=== PATIENT | female | born 1990 | race Caucasian/White ===

== ENCOUNTER 2017-06-21 15:37 | Emergency (ER) | payer MEDICAID ==
[~2017-06-21] VITALS: Ht 177.8 cm; Wt 64.0 kg
[~2017-06-21 15:37] MED LIST: HYDR-569 PO; ONDA8TAB9 PO
[2017-06-21] MEDS ORDERED: ketorolac tromethamine 15mg/ml inj. IV ONE (16:10)
[2017-06-21] MEDS ORDERED: normal saline 1000ML IV soln IVB ONE ×2 (16:10→22:10)
[2017-06-21] MEDS ORDERED: ondansetron/PF 4mg/2ml inj IV ONE ×2 (16:10→18:35)
[2017-06-21 16:11] LABS: CLARITY,URINE Cloudy (Clear); COLOR,URINE Yellow (Yellow); GLUCOSE, URINE Negative (Neg); KETONES,URINE 80 mg/dl (Neg); LEUKOCYTE ESTERASE ,URINE Small (Neg); NITRITES, URINE Negative (Neg); OCCULT BLOOD,URINE Negative (Neg); PH,URINE 5.5 (4.8-8.0); PROTEIN,URINE 30 mg/dl (Neg); UA COLLECTION TYPE CLN CATCH MIDSTREAM; URINE HCG NEGATIVE (NEG)
[2017-06-21 16:18] LABS: BACTERIA,URINE 1+ /HPF (Neg); MUCUS STRANDS FEW /LPF (Neg); RBC,URINE NONE SEEN /HPF (0-2); SQUAMOUS EPITHELIAL CELL,UR MANY /LPF (FEW); TRANSITIONAL EPI CELLS,URINE FEW /HPF; WBC,URINE 20-30 /HPF (0-4)
[2017-06-21] MEDS ORDERED: ketorolac tromethamine 15mg/ml inj. IM ONE (17:20)
[2017-06-21] MEDS ORDERED: ondansetron 4mg rapidly disintigrating tab PO ONE (17:20)
[2017-06-21] MEDS ORDERED: LIDOcaine 1% 30ml preserv. free vial IJ ONE (17:25)
[2017-06-21] MEDS ORDERED: normal saline 1000ml 1,000 ML IV STA (17:53)
[2017-06-21 17:56] LABS: BASOPHILS % (AUTO) 0.5 % (0-1); EOSINOPHILS # (AUTO) 0.1 X10'3 (0-0.9); EOSINOPHILS % (AUTO) 1.1 % (0-6); HEMATOCRIT 36.9 % (35.0-45.0); HEMOGLOBIN 12.4 g/dl (12.0-16.0); LYMPHOCYTES # (AUTO) 0.7 X10'3 (1.1-4.8); LYMPHOCYTES % (AUTO) 7.8 % (21-51); MEAN CORPUSCULAR HEMOGLOBIN 30.8 PG (27.0-31.0); MEAN CORPUSCULAR HGB CONC 33.8 % (33.0-36.5); MEAN CORPUSCULAR VOLUME 91.2 FL (78-98); MONOCYTES # (AUTO) 0.4 X10'3 (0-0.9); MONOCYTES % (AUTO) 4.7 % (2-12); NEUTROPHILS # (AUTO) 7.6 X10'3 (1.8-7.7); NEUTROPHILS % (AUTO) 85.9 % (42-75); PLATELET COUNT 272 X10'3 (140-440); RED BLOOD COUNT 4.04 X10'6 (4.20-5.60); RED CELL DISTRIBUTION WIDTH 13.9 % (11.5-14.5); WHITE BLOOD COUNT 8.9 X10'3 (4.5-11.0)
[2017-06-21 18:10] LABS: PLATELET ESTIMATE NORMAL; TOTAL CELLS COUNTED 100
[2017-06-21 18:13] LABS: ALANINE AMINOTRANSFERASE 24 U/L (12-78); ALBUMIN/GLOBULIN RATIO 0.7 (1.1-1.5); ALKALINE PHOSPHATASE 103 IU/L (46-116); ANION GAP 8 (8-16); ASPARTATE AMINO TRANSFERASE 19 U/L (10-37); BILIRUBIN,TOTAL 0.5 MG/DL (0.1-1.0); BLOOD UREA NITROGEN 15 MG/DL (7-18); BUN/CREATININE RATIO 19.2 (6.6-38.0); CHLORIDE 99 MMOL/L (99-107); CREATININE 0.78 MG/DL (0.40-0.90); GLUCOSE 82 MG/DL (70-104); LIPASE < 50 U/L (73-393); POTASSIUM 3.7 MMOL/L (3.5-5.1); SODIUM 134 MMOL/L (135-145); TOTAL CARBON DIOXIDE 26.7 MMOL/L (24-32); TOTAL PROTEIN 7.3 G/DL (6.4-8.2); eGFR 89 ML/MIN
[2017-06-21] MEDS ORDERED: morphine 4 MG/ML inj SYRINge IV ONE ×3 (18:35→20:55)
[2017-06-21] MEDS ORDERED: iohexol 300mg/ml 100ml inj. ONE (18:36)
[2017-06-21] MEDS ORDERED: orphenadrine citrate 60mg/2ml inj. IM ONE (20:55)
[2017-06-21 21:01] LABS: CLARITY,URINE CLEAR (Clear); COLOR,URINE YELLOW (Yellow); GLUCOSE, URINE NEGATIVE (Neg); KETONES,URINE >=80 mg/dl (Neg); LEUKOCYTE ESTERASE ,URINE NEGATIVE (Neg); NITRITES, URINE NEGATIVE (Neg); OCCULT BLOOD,URINE TRACE-INTACT (Neg); PH,URINE 5.5 (4.8-8.0); PROTEIN,URINE NEGATIVE (Neg); UROBILINOGEN,URINE 0.2 E.U/dL (0.2-1.0)
[2017-06-21 21:04] LABS: UA COLLECTION TYPE CLN CATCH MIDSTREAM
[2017-06-21 21:12] LABS: BACTERIA,URINE FEW /HPF (Neg); RBC,URINE 0-2 /HPF (0-2); SQUAMOUS EPITHELIAL CELL,UR MODERATE /LPF (FEW)
[2017-06-22] MEDS ORDERED: diazepam 5mg tablet PO ONE
[2017-06-22] MEDS ORDERED: normal saline 1000ML IV soln IVB ONE (00:10)
[2017-06-22] MEDS ORDERED: iohexol 350MG/ML 100ml bottle IV ONE (00:12)
[2017-06-22] MEDS ORDERED: cephalexin 250mg capsule PO ONE (00:25)
[2017-06-22 01:14] VITALS: BP 136/82
[2017-06-22] MEDS ORDERED: AZIT250T2 PO (01:31)
[2017-06-22] MEDS ORDERED: CefTRIAXone/D5W-Rocephin 1gm 50 ML IV ONE (01:35)
== END 2017-06-22 02:33 | disposition home or self-care (01) ==
LOC: ER 15:39
DX: J18.9 Pneumonia, unspecified organism (principal); M54.6 Pain in thoracic spine; R10.11 Right upper quadrant pain; R10.31 Right lower quadrant pain; F17.200 Nicotine dependence, unspecified, uncomplicated; F11.10 Opioid abuse, uncomplicated; Z88.8 Allergy status to other drugs, medicaments and biological substances; Z79.899 Other long term (current) drug therapy
CPT/HCPCS: 36415; 71275; 74177; 76700; 76830; 76856; 80053; 81001; 81025; 83605; 83690; 85025; 87088; 87210; 96365; 96372; 96375; 96376; 99285; J0696; J1885; J2270; J2360; J2405; J7030; Q9967; 76857; J3490

== ENCOUNTER 2022-04-13 20:45 | Emergency (ER) | payer MEDICAID ==
[~2022-04-13] VITALS: Ht 180.3 cm; Wt 75.0 kg
[~2022-04-13 20:45] MED LIST changes: +HYDR-4383 PO; -HYDR-569 PO
[2022-04-13 21:16] LABS: URINE HCG NEGATIVE (NEG)
[2022-04-13 21:17] LABS: CLARITY,URINE SLIGHTLY CLOUDY (Clear); COLOR,URINE YELLOW (Yellow); GLUCOSE, URINE NEGATIVE (Neg); KETONES,URINE NEGATIVE (Neg); LEUKOCYTE ESTERASE ,URINE TRACE (Neg); NITRITES, URINE NEGATIVE (Neg); OCCULT BLOOD,URINE NEGATIVE (Neg); PH,URINE 5.5 (4.8-8.0); PROTEIN,URINE TRACE mg/dl (Neg); UROBILINOGEN,URINE 0.2 E.U/dL (0.2-1.0)
[2022-04-13 21:23] LABS: UA COLLECTION TYPE CLN CATCH MIDSTREAM
[2022-04-13 21:27] LABS: BACTERIA,URINE FEW /HPF (Neg); MUCUS STRANDS FEW /LPF (Neg); RBC,URINE 0-2 /HPF (0-2); SQUAMOUS EPITHELIAL CELL,UR MODERATE /LPF (FEW); WBC,URINE 50-100 /HPF (0-4)
[2022-04-13 21:41] VITALS: BP 155/106
[2022-04-13] MEDS ORDERED: nitrofuran monohydrate/nitrofuran macrocrysal 100 MG (MacroBID) capsule PO ONE (22:40)
[2022-04-13] MEDS ORDERED: NITR100C6 PO (22:40)
== END 2022-04-13 23:00 | disposition home or self-care (01) ==
LOC: ER 20:46
DX: N39.0 Urinary tract infection, site not specified (principal); F17.200 Nicotine dependence, unspecified, uncomplicated; Z88.1 Allergy status to other antibiotic agents; Z79.899 Other long term (current) drug therapy; Z79.1 Long term (current) use of non-steroidal anti-inflammatories (NSAID); Z79.2 Long term (current) use of antibiotics
CPT/HCPCS: 81001; 81025; 87088; 99283